=== PATIENT | male | born 1945 | race Caucasian/White ===

== ENCOUNTER 2021-04-23 04:24 | Emergency (ER) | payer OTHER, MEDICARE ==
[~2021-04-23] VITALS: Ht 188 cm; Wt 85.5 kg
--- NOTE | 2021-04-23 04:52 | NUR ---
PT C/O OF LLQ ABD PAIN. STATES HE HAS NO HAD A BM IN A FEW DAYS. REPORTS PASSING GAS. DENIES N/V/D. PT ATTACGED TO MONITORS. VSS. NADN. BED IN LOW POSITION. RAILS ENGAGED. CALL LIGHT ON LAP AT BEDSIDE, AMBULATED TO ROOM WITH STEADY GAIT.
[2021-04-23] MEDS ORDERED: PINK LADY ENEMA 490 ML BOTTLE PR ONE (05:30)
--- NOTE | 2021-04-23 05:55 | NUR ---
PT TOLERATIN ENEMA WELL. Bed in lowest, rails engaged, call light on lap. Vital Signs within normal limits. WCTM.
[2021-04-23 06:36] VITALS: BP 114/69
--- NOTE | 2021-04-23 06:44 | NUR ---
Patient/Caregiver given discharge instructions and they have confirmed that they understand the instructions. Patient ambulatory with steady gait. NAD, all questions answered appropriately, denies additional needs at this time. No personal belongings left in room after discharge.
== END 2021-04-23 06:47 | disposition home or self-care (01) ==
LOC: ED 06:14
DX: K56.41 Fecal impaction (principal); K59.00 Constipation, unspecified; I48.91 Unspecified atrial fibrillation; Z85.46 Personal history of malignant neoplasm of prostate
CPT/HCPCS: 99284